=== PATIENT | male | born 1960 | race Caucasian/White ===

== ENCOUNTER 2020-12-01 12:38 | Emergency (ER) | payer SELFPAY ==
[~2020-12-01 12:38] MED LIST: NORCO 5-325 TA1 EACH PO; PREDNISONE20 MG PO
== END 2020-12-01 15:09 | disposition home or self-care (01) ==
LOC: ER1 12:38
DX: S46.911A Strain of unspecified muscle, fascia and tendon at shoulder and upper arm level, right arm, initial encounter (principal); F17.210 Nicotine dependence, cigarettes, uncomplicated; W18.30XA Fall on same level, unspecified, initial encounter; Y92.69 Other specified industrial and construction area as the place of occurrence of the external cause; Y99.0 Civilian activity done for income or pay
CPT/HCPCS: 73030; 99283